=== PATIENT | female | born 2000 | race Hispanic/Latino ===

== ENCOUNTER 2020-02-12 16:06 | Emergency (ER) | payer MEDICAID ==
[2020-02-12 16:23] LABS: APPEARANCE,URINE SL CLOUDY (CLEAR); BILIRUBIN,URINE NEGATIVE (NEGATIVE); COLOR,URINE YELLOW (YELLOW); GLUCOSE, URINE (UA) NEGATIVE (NEGATIVE); KETONES,URINE NEGATIVE (NEGATIVE); LEUKOCYTE ESTERASE ,URINE NEGATIVE (NEGATIVE); NITRATE,URINE POSITIVE (NEGATIVE); OCCULT BLOOD,URINE NEGATIVE (NEGATIVE); PROTEIN,URINE NEGATIVE (NEGATIVE); UROBILINOGEN,URINE 0.2 mg/dL (0.2-1.0)
[2020-02-12 16:32] LABS: HCG,QUAL RESULT NEGATIVE (NEGATIVE)
[2020-02-12 16:42] LABS: BACTERIA,URINE Moderate /HPF (None Seen); RBC,URINE 0-1 /HPF (0-1); SQUAMOUS EPITHELIAL CELL,UR Moderate /HPF (0-2)
[2020-02-12] MEDS ORDERED: ACETAMINOPHEN EXTRA STRENGTH 500 MG TABLET ONE (18:13)
== END 2020-02-12 19:31 | disposition left against medical advice (07) ==
LOC: EDH 16:06
DX: R51.9 Headache, unspecified (principal)
CPT/HCPCS: 81001; 81025; 87088